=== PATIENT | male | born 1975 | race Caucasian/White ===

== ENCOUNTER 2018-05-05 09:40 | Emergency (ER) | payer MEDICAID, SELFPAY ==
[2018-05-05 09:42] VITALS: BP 166/95; PULSE 102; RESP 18; TEMP 36.6; O2SAT 96; BMI 24.0
--- NOTE | 2018-05-05 10:01 | ED.VISSUMM ---
- ER Visit Summary Date of Service: 05/05/18 Chief Complaint: Sinus congestion History of Present Illness: The patient is a 42 M presenting for evaluation secondary to sinus congestion. Patient reports that he has had a significant runny nose, nasal congestion, and headaches over the course last 2-3 days. He reports that the headaches have been associated with mild sweats. He would endorses that he has a sore throat, and when he lies flat he has a significant amount of green mucus that drains down the back of his throat that he coughs up. He denies any nausea or vomiting associated with this. He has not tried any sort of [id number] remedies for this. Patient is otherwise healthy he is a non-smoker and does not take any medications. Physical Examination: Vital signs are remarkable for mild tachycardia heart rate of 102. Well-nourished male no acute distress. Diffuse sinus tenderness to percussion. Nasal exam shows swollen turbinates and some clear drainage. Oropharyngeal exam is normal with no evidence of erythema posterior fullness or asymmetry. Neck supple. Heart was regular rate and rhythm on my exam no murmur. Lung sounds are clear. Test Results: None indicated Emergency Department Course and Treatment: Patient presented with 2-3 days of sinus congestion. This is likely consistent with viral rhinosinusitis. Patient will be treated with Sudafed and Afrin. Disposition: Discharge Impression: 1. Viral rhinosinusitis This note was generated with [employer] dictation software. It may contain incorrect words, spelling, and punctuation that were not noted in review of the chart prior to signing ED Disposition - Plan for ED Patient: Disposition: Home or Assisted Living Chief Complaint: Cold Sx Diagnosis: Acute rhinosinusitis Instructions: ED Sinusitis No Abx Prescriptions: Pseudoephedrine HCl [Sudafed 12 Hour] 120 mg PO Q12H #10 tablet.er Referrals: Rachael Lama [NON-STAFF] - As Needed
[2018-05-05] MEDS: Oxymetazoline 0.05% 1 SPRAY SPRAY.BTL 2 SPRAY NASAL (10:21)
[2018-05-05 10:23] VITALS: BP 163/110; PULSE 97; RESP 18; O2SAT 96
== END 2018-05-05 10:27 | disposition home or self-care (01) ==
PROVIDERS: Emergency Provider Emergency Medicine
DX: J32.9 Chronic sinusitis, unspecified (principal); B34.9 Viral infection, unspecified
CPT/HCPCS: 99283